=== PATIENT | female | born 1965 | race Caucasian/White ===

== ENCOUNTER 2016-09-13 02:12 | Emergency (ER) | payer OTHER ==
[~2016-09-13] VITALS: Ht 167.6 cm; Wt 55.0 kg
[2016-09-13 02:14] VITALS: BP 102/68; PULSE 78; RESP 20; TEMP 97.9; O2SAT 97
[2016-09-13] MEDS ORDERED: CYMB60CA PO (02:17)
[2016-09-13] MEDS ORDERED: LIDOCAINE HCL 1% 50 ML VIAL INFIL ONE (03:15)
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
[2016-09-13] MEDS ORDERED: ACETAMINOPHEN/HYDROcodone 325 MG/7.5 MG TAB PO ONE (04:15)
[2016-09-13] MEDS ORDERED: KETOROLAC TROMETHAMINE 60 MG/2 ML (IM) VIAL IM ONE (04:15)
[2016-09-13] MEDS ORDERED: ONDANSETRON ODT 4 MG TAB PO ONE (04:15)
== END 2016-09-13 05:04 | disposition home or self-care (01) ==
LOC: NEPC 02:12
DX: S01.511A Laceration without foreign body of lip, initial encounter (principal); M79.1 Myalgia; F32.9 Major depressive disorder, single episode, unspecified; Z72.0 Tobacco use; V43.62XA Car passenger injured in collision with other type car in traffic accident, initial encounter; Y93.9 Activity, unspecified; Y92.9 Unspecified place or not applicable; Y99.9 Unspecified external cause status
CPT/HCPCS: 73060; 73080; 96372; 99284; J1885